=== PATIENT | male | born 1990 | race African-American/Black ===

== ENCOUNTER 2017-06-28 12:42 | Emergency (ER) | payer SELFPAY ==
[~2017-06-28] VITALS: Ht 177.8 cm; Wt 81.6 kg
[2017-06-28] VITALS (31 sets, daily range): BP systolic 112–191; BP diastolic 60–167
--- NOTE | 2017-06-28 13:50 | Emergency Room Report ---
History of Present Illness General Chief Complaint: Altered Level of Consciousness Source: Patient, EMS (KETAN PEREZ D.O.) Present Illness HPI Patient was brought in by police department and paramedics Initial report was that the patient was walking around without clothing Patient initially reported that he was just drunk Patient later on went on to report auditory hallucinations Denies any homicidal or suicidal thoughts However does have some bizarre thought process Patient is otherwise uncooperative with the history and examination (KETAN PEREZ D.O.) Allergies: Coded Allergies: No Known Allergies (Unverified , 06/28/17) Patient History Limited by: medical condition Past Medical History: see triage record Pertinent Family History: unable to obtain Reviewed Nursing Documentation: PMH: Agreed, PSxH: Agreed (KETAN PEREZ D.O.) Nursing Documentation-PMH Past Medical History: No Stated History (KETAN PEREZ D.O.) Review of Systems All Other Systems: limited - Other than the ones mentioned in the history of present illness all others are reviewed however they do stay limited due to the patient's mental status (KETAN PEREZ D.O.) Physical Exam Vital Signs Date Time Temp Pulse Resp B/P (MAP) Pulse Ox O2 Delivery O2 Flow Rate FiO2 06/28/17 12:29 144 20 191/167 98 Room Air 06/28/17 12:43 98.0 Sp02 EP Interpretation: reviewed, normal General Appearance: well appearing, no apparent distress Head: normocephalic, atraumatic Eyes: bilateral eye PERRL, bilateral eye EOMI ENT: hearing grossly normal, normal pharynx Neck: supple, thyroid normal Respiratory: lungs clear Cardiovascular #1: regular rate, rhythm, no edema Gastrointestinal: non tender, soft Musculoskeletal: normal inspection Neurologic: alert, responsive Psychiatric: other - Bizarre thought process, appears agitated denies homicidal thought at this time Skin: normal color (KETAN PEREZ D.O.) Medical Decision Making Diagnostic Impression: Primary Impression: Substance abuse ER Course Patient signed out to me. He presents with altered mental status and agitation from substance abuse. Initially was a Jamar Sargent. He slept through the night. Now is awake and back to baseline. Able to give his name. We'll discharge home. (DUFF,BETTY M.D.) Last Vital Signs Date Time Temp Pulse Resp B/P (MAP) Pulse Ox O2 Delivery O2 Flow Rate FiO2 06/28/17 12:43 98.0 95 20 191/167 98 Room Air (KETAN PEREZ D.O.) Status: improved (BETTY DUFF M.D.) Disposition: HOME, SELF-CARE Condition: Stable KETAN PEREZ D.O. Jun 28, 2017 13:50 BETTY DUFF M.D. Jun 29, 2017 05:30
[2017-06-28] MEDS ORDERED: DiphenhydrAMINE 50mg/ml Inj IM ONE (14:00)
[2017-06-28] MEDS ORDERED: Haloperidol 5mg/ml Inj IM ONE (14:00)
[2017-06-28] MEDS ORDERED: LORazepam Inj 2mg/ml 1ml IM ONE ×2 (14:00→16:30)
[2017-06-28 17:10] LABS: BASOPHILS % (AUTO) 1.3 % (0.0-2.0); EOSINOPHILS % (AUTO) 1.3 % (0.0-3.0); HEMATOCRIT 47.6 % (42.0-52.0); HEMOGLOBIN 15.8 G/DL (14.2-18.0); MEAN CORPUSCULAR VOLUME 95 FL (80-99); MONOCYTES % (AUTO) 10.4 % (1.0-10.0); NEUTROPHILS % (AUTO) 49.9 % (45.0-75.0); PLATELET COUNT 241 K/UL (150-450); RED BLOOD COUNT 5.01 M/UL (4.70-6.10); RED CELL DISTRIBUTION WIDTH 11.5 % (11.6-14.8); WHITE BLOOD COUNT 6.8 K/UL (4.8-10.8)
[2017-06-28 17:32] LABS: ALANINE AMINOTRANSFERASE 22 U/L (12-78); ALBUMIN 4.6 G/DL (3.4-5.0); ALBUMIN/GLOBULIN RATIO 1.5 (1.0-2.7); ALKALINE PHOSPHATASE 102 U/L (46-116); ANION GAP 13 mmol/L (5-15); ASPARTATE AMINO TRANSFERASE 26 U/L (15-37); BLOOD UREA NITROGEN 12 mg/dL (7-18); CALCIUM 10.2 MG/DL (8.5-10.1); CARBON DIOXIDE 28 MMOL/L (21-32); CHLORIDE 102 MMOL/L (98-107); CREATININE 1.3 MG/DL (0.55-1.30); SODIUM 142 MMOL/L (136-145)
[2017-06-29 01:04] VITALS: BP 114/64
[2017-06-29 03:00] VITALS: BP 116/68
[2017-06-29 05:21] VITALS: BP 116/66
[2017-06-29 05:24] VITALS: BP 116/66
== END 2017-06-29 05:30 | disposition home or self-care (01) ==
LOC: EDBD 12:42 → EMR 15:52
DX: F19.10 Other psychoactive substance abuse, uncomplicated (principal)
CPT/HCPCS: 36415; 80053; 80307; 85025; 96372; 99284; G0480; J1200; J1630; 80329

== ENCOUNTER 2017-06-29 13:52 | Emergency (ER) | payer SELFPAY ==
[~2017-06-29] VITALS: Ht 175.3 cm; Wt 81.6 kg
[2017-06-29] VITALS (30 sets, daily range): BP systolic 107–125; BP diastolic 70–85
--- NOTE | 2017-06-29 20:53 | Emergency Room Report ---
History of Present Illness General Chief Complaint: Behavioral Complaint Source: Patient, EMS Present Illness HPI The patient is a 27-year-old male brought in by both paramedics and the [employer] for bizarre behavior. He was seen in this emergency Department yesterday for the same complaint and discharged earlier this morning. The patient does not provide any useful information at this time Allergies: Coded Allergies: No Known Allergies (Unverified , 06/28/17) UNABLE TO ASSESS (Unverified , 06/29/17) PT DIFFICULT TO COMPLY, NOT ANSWERING. Patient History Past Medical History: see triage record Pertinent Family History: none Reviewed Nursing Documentation: PMH: Agreed, PSxH: Agreed Nursing Documentation-PMH Past Medical History: Deferred Review of Systems All Other Systems: limited Physical Exam Vital Signs Date Time Temp Pulse Resp B/P (MAP) Pulse Ox O2 Delivery O2 Flow Rate FiO2 06/29/17 13:56 Room Air 06/29/17 14:00 97.7 89 14 107/74 97 Sp02 EP Interpretation: reviewed, normal General Appearance: alert, GCS 15, non-toxic, mild distress Head: normocephalic, atraumatic Eyes: bilateral eye PERRL, bilateral eye EOMI, bilateral eye abnormal pupil - dilated ENT: hearing grossly normal, normal pharynx, no angioedema, normal voice Neck: full range of motion, supple/symm/no masses Respiratory: chest non-tender, lungs clear, normal breath sounds, speaking full sentences Cardiovascular #1: regular rate, rhythm, no edema Musculoskeletal: back normal, gait/station normal, normal range of motion Neurologic: alert, responsive, motor strength/tone normal, sensory intact Psychiatric: anxious, other - delusional Skin: normal color, no rash, warm/dry, well hydrated Medical Decision Making PA Attestation Dr. Mcadonald is my supervising physician. Patient management was discussed with my supervising physician Diagnostic Impression: Primary Impression: Altered level of consciousness ER Course The patient is a 27-year-old male brought in by both paramedics and the [employer] for bizarre behavior Differential diagnoses considered but not limited to Drug abuse, alcohol intoxication, psychosis, among others PE: Mild distress. Vitals WNL Pt is thrashing about. Head is NC/AT A&Ox2 to name and date. PERRL. Dilated. EOMI RRR Lungs CTA bilat Abd is soft. Non tender Behavioral restraints are placed until a sitter becomes available. Please see labs from yesterday. The patient is given time to rest in the emergency department and will have PET evaluation I have signed the patient out to Dr. Do at this time. Last Vital Signs Date Time Temp Pulse Resp B/P (MAP) Pulse Ox O2 Delivery O2 Flow Rate FiO2 06/29/17 19:45 90 16 99 Room Air 06/29/17 14:00 97.7 107/74 Status: improved Disposition: HOME, SELF-CARE Condition: Improved Referrals: NOT CHOSEN IPA/,REFERRING (PCP) RONAK GERMAIN Jun 29, 2017 20:53
[2017-06-30 00:47] VITALS: BP 127/87
--- NOTE | 2017-06-30 01:47 | Consultation ---
History of Present Illness General Chief Complaint: Behavioral Complaint Present Illness HPI Patient was brought in by police department and paramedics Initial report was that the patient was walking around without clothing Patient initially reported that he was just drunk Patient later on went on to report auditory hallucinations the pt was also delusional the pt was not combative during my eval the pt denied si. Allergies: Coded Allergies: No Known Allergies (Unverified , 06/28/17) UNABLE TO ASSESS (Unverified , 06/29/17) PT DIFFICULT TO COMPLY, NOT ANSWERING. Patient History Healthcare decision maker Resuscitation status Advanced Directive on File Physical Exam Last 24 Hour Vital Signs Date Time Temp Pulse Resp B/P (MAP) Pulse Ox O2 Delivery O2 Flow Rate FiO2 06/30/17 00:47 98.1 92 17 127/87 100 Room Air 06/29/17 21:15 95 14 99 Room Air 06/29/17 21:00 98.1 95 14 125/85 99 Room Air 06/29/17 21:00 95 14 99 Room Air 06/29/17 20:45 95 14 99 Room Air 06/29/17 20:30 90 16 99 Room Air 06/29/17 20:15 90 16 99 Room Air 06/29/17 20:00 90 16 99 Room Air 06/29/17 19:45 90 16 99 Room Air 06/29/17 19:31 90 16 99 Room Air 06/29/17 19:15 90 16 99 Room Air 06/29/17 19:00 85 16 99 Room Air 06/29/17 18:45 85 16 99 Room Air 06/29/17 18:30 81 16 99 Room Air 06/29/17 18:15 84 16 99 Room Air 06/29/17 18:00 78 16 99 Room Air 06/29/17 17:45 78 16 99 Room Air 06/29/17 17:30 78 16 99 Room Air 06/29/17 17:15 79 16 99 Room Air 06/29/17 17:00 80 16 99 Room Air 06/29/17 16:45 80 16 99 Room Air 06/29/17 16:30 79 20 99 Room Air 06/29/17 16:15 79 20 99 Room Air 06/29/17 16:00 87 20 99 Room Air 06/29/17 15:45 87 20 99 Room Air 06/29/17 15:30 89 18 97 Room Air 06/29/17 15:15 84 18 97 Room Air 06/29/17 15:00 89 18 97 Room Air 06/29/17 14:45 86 18 100 Room Air 06/29/17 14:30 89 18 97 Room Air 06/29/17 14:00 97.7 89 14 107/74 97 Room Air 06/29/17 13:56 Room Air Height (Feet): 5 Height (Inches): 9.00 Weight (Pounds): 180 Assessment/Plan Status: stable, progressing Assessment/Plan alcohol abuse the pt should be dced not a 5150 Kingsley Adkins M.D. Jun 30, 2017 01:47
[2017-06-30 03:30] VITALS: BP 130/91
--- NOTE | 2017-06-30 04:23 | Emergency Room Report ---
History of Present Illness General Chief Complaint: Behavioral Complaint Source: Patient, EMS Present Illness Allergies: Coded Allergies: No Known Allergies (Unverified , 06/28/17) UNABLE TO ASSESS (Unverified , 06/29/17) PT DIFFICULT TO COMPLY, NOT ANSWERING. Nursing Documentation-[facility] Past Medical History: Deferred Physical Exam Vital Signs Date Time Temp Pulse Resp B/P (MAP) Pulse Ox O2 Delivery O2 Flow Rate FiO2 06/29/17 13:56 Room Air 06/29/17 14:00 97.7 89 14 107/74 97 Medical Decision Making Diagnostic Impression: Primary Impression: Behavioral change ER Course Received signout from MICHAEL Joseph and Dr Macdonald at 10pm to re-eval this patient Still exhibiting bizarre behavior He is alert and oriented but is non-sensical in answering questions I ask him if he did drugs and he said "I drank." When I ask him what he drank he says "I smoked." He's not sure how he got back to ER He was cleared by Dr Adkins the day before after visit to ER for similar but was brought back by ambulance He is not on a hold [facility] he denies HI, AVH Signed out to Dr Vicente at 630am for pending Psych Cx or PET Last Vital Signs Date Time Temp Pulse Resp B/P (MAP) Pulse Ox O2 Delivery O2 Flow Rate FiO2 06/30/17 00:47 98.1 92 17 127/87 100 Room Air Status: improved Condition: Improved Referrals: NOT CHOSEN IPA/,REFERRING (PCP) KAMRAN FRANKEL M.D. Jun 30, 2017 04:23
--- NOTE | 2017-06-30 04:23 | Emergency Room Report ---
History of Present Illness General Chief Complaint: Behavioral Complaint Source: Patient, EMS Present Illness Allergies: Coded Allergies: No Known Allergies (Unverified , 06/28/17) UNABLE TO ASSESS (Unverified , 06/29/17) PT DIFFICULT TO COMPLY, NOT ANSWERING. Nursing Documentation-[facility] Past Medical History: Deferred Physical Exam Vital Signs Date Time Temp Pulse Resp B/P (MAP) Pulse Ox O2 Delivery O2 Flow Rate FiO2 06/29/17 13:56 Room Air 06/29/17 14:00 97.7 89 14 107/74 97 Medical Decision Making Diagnostic Impression: Primary Impression: Behavioral change ER Course Received signout from MICHAEL Joseph and Dr Macdonald at 10pm to re-eval this patient Still exhibiting bizarre behavior He is alert and oriented but is non-sensical in answering questions I ask him if he did drugs and he said "I drank." When I ask him what he drank he says "I smoked." He's not sure how he got back to ER He was cleared by Dr Adkins the day before after visit to ER for similar but was brought back by ambulance He is not on a hold [facility] he denies HI, AVH Signed out to Dr Vicente at 630am for pending Psych Cx or PET Last Vital Signs Date Time Temp Pulse Resp B/P (MAP) Pulse Ox O2 Delivery O2 Flow Rate FiO2 06/30/17 00:47 98.1 92 17 127/87 100 Room Air Status: improved Condition: Improved Referrals: NOT CHOSEN IPA/,REFERRING (PCP) KAMRAN FRANKEL M.D. Jun 30, 2017 04:23
--- NOTE | 2017-06-30 04:23 | Emergency Room Report ---
History of Present Illness General Chief Complaint: Behavioral Complaint Source: Patient, EMS Present Illness Allergies: Coded Allergies: No Known Allergies (Unverified , 06/28/17) UNABLE TO ASSESS (Unverified , 06/29/17) PT DIFFICULT TO COMPLY, NOT ANSWERING. Nursing Documentation-[facility] Past Medical History: Deferred Physical Exam Vital Signs Date Time Temp Pulse Resp B/P (MAP) Pulse Ox O2 Delivery O2 Flow Rate FiO2 06/29/17 13:56 Room Air 06/29/17 14:00 97.7 89 14 107/74 97 Medical Decision Making Diagnostic Impression: Primary Impression: Behavioral change ER Course Received signout from MICHAEL Joseph and Dr Macdonald at 10pm to re-eval this patient Still exhibiting bizarre behavior He is alert and oriented but is non-sensical in answering questions I ask him if he did drugs and he said "I drank." When I ask him what he drank he says "I smoked." He's not sure how he got back to ER He was cleared by Dr Adkins the day before after visit to ER for similar but was brought back by ambulance He is not on a hold [facility] he denies HI, AVH Signed out to Dr Vicnete at 630am for pending Psych Cx or PET Last Vital Signs Date Time Temp Pulse Resp B/P (MAP) Pulse Ox O2 Delivery O2 Flow Rate FiO2 06/30/17 00:47 98.1 92 17 127/87 100 Room Air Status: improved Condition: Improved Referrals: NOT CHOSEN IPA/,REFERRING (PCP) KAMRAN FRANKEL M.D. Jun 30, 2017 04:23
[2017-06-30 06:15] VITALS: BP 110/80
[2017-06-30] MEDS ORDERED: LORazepam Inj 2mg/ml 1ml IM ONE (10:00)
[2017-06-30] MEDS ORDERED: Haloperidol 5mg/ml Inj IM ONE (10:00)
--- NOTE | 2017-06-30 11:13 | Emergency Room Report ---
History of Present Illness General Chief Complaint: Behavioral Complaint Source: Patient, EMS Present Illness Allergies: Coded Allergies: No Known Allergies (Unverified , 06/28/17) UNABLE TO ASSESS (Unverified , 06/29/17) PT DIFFICULT TO COMPLY, NOT ANSWERING. Nursing Documentation-[facility] Past Medical History: Deferred Physical Exam Vital Signs Date Time Temp Pulse Resp B/P (MAP) Pulse Ox O2 Delivery O2 Flow Rate FiO2 06/29/17 13:56 Room Air 06/29/17 14:00 97.7 89 14 107/74 97 Medical Decision Making Diagnostic Impression: Primary Impression: Behavioral change ER Course Patient signed out to me pending psychiatric evaluation During ED course patient remains bizarre thought and not speaking sensibly Did not believe patient can be safely discharged at this time will require psychiatric evaluation Labs unremarkable. Patient is medically cleared Labs Test 06/30/17 04:10 Urine Opiates Screen Negative (NEGATIVE) Urine Barbiturates Screen Negative (NEGATIVE) Phencyclidine (PCP) Screen Negative (NEGATIVE) Urine Amphetamines Screen Negative (NEGATIVE) Urine Benzodiazepines Screen Positive (NEGATIVE) Urine Cocaine Screen Negative (NEGATIVE) Urine Marijuana (THC) Screen Negative (NEGATIVE) Last Vital Signs Date Time Temp Pulse Resp B/P (MAP) Pulse Ox O2 Delivery O2 Flow Rate FiO2 06/30/17 06:15 98.3 95 14 110/80 100 Room Air Status: unchanged Disposition: XFER TO PSYCH HOSP/UNIT Condition: Serious Referrals: NOT CHOSEN DELILAH/,REFERRING (PCP) COOKIE JDAE M.D. Jun 30, 2017 11:13
--- NOTE | 2017-06-30 11:13 | Emergency Room Report ---
History of Present Illness General Chief Complaint: Behavioral Complaint Source: Patient, EMS Present Illness Allergies: Coded Allergies: No Known Allergies (Unverified , 06/28/17) UNABLE TO ASSESS (Unverified , 06/29/17) PT DIFFICULT TO COMPLY, NOT ANSWERING. Nursing Documentation-[facility] Past Medical History: Deferred Physical Exam Vital Signs Date Time Temp Pulse Resp B/P (MAP) Pulse Ox O2 Delivery O2 Flow Rate FiO2 06/29/17 13:56 Room Air 06/29/17 14:00 97.7 89 14 107/74 97 Medical Decision Making Diagnostic Impression: Primary Impression: Behavioral change ER Course Patient signed out to me pending psychiatric evaluation During ED course patient remains bizarre thought and not speaking sensibly Did not believe patient can be safely discharged at this time will require psychiatric evaluation Labs unremarkable. Patient is medically cleared Labs Test 06/30/17 04:10 Urine Opiates Screen Negative (NEGATIVE) Urine Barbiturates Screen Negative (NEGATIVE) Phencyclidine (PCP) Screen Negative (NEGATIVE) Urine Amphetamines Screen Negative (NEGATIVE) Urine Benzodiazepines Screen Positive (NEGATIVE) Urine Cocaine Screen Negative (NEGATIVE) Urine Marijuana (THC) Screen Negative (NEGATIVE) Last Vital Signs Date Time Temp Pulse Resp B/P (MAP) Pulse Ox O2 Delivery O2 Flow Rate FiO2 06/30/17 06:15 98.3 95 14 110/80 100 Room Air Status: unchanged Disposition: XFER TO PSYCH HOSP/UNIT Condition: Serious Referrals: NOT CHOSEN DELILAH/,REFERRING (PCP) COOKIE JADE M.D. Jun 30, 2017 11:13
[2017-06-30 20:00] VITALS: BP 91/53
[2017-06-30 23:25] VITALS: BP 91/53
[2017-07-01 01:18] LABS: APPEARANCE,URINE CLEAR; BILIRUBIN, URINE NEGATIVE (NEGATIVE); GLUCOSE, URINE (UA) NEGATIVE (NEGATIVE); KETONES,URINE NEGATIVE (NEGATIVE); LEUKOCYTE ESTERASE ,URINE 1+ (NEGATIVE); NITRITE,URINE NEGATIVE (NEGATIVE); PH,URINE 6 (4.5-8.0); PROTEIN,URINE 1+ (NEGATIVE); UROBILINOGEN,URINE NORMAL MG/DL (0.0-1.0)
[2017-07-01 01:22] LABS: COLOR,URINE YELLOW
[2017-07-01 01:57] VITALS: BP 106/72
--- NOTE | 2017-07-01 03:13 | Emergency Room Report ---
History of Present Illness General Chief Complaint: Behavioral Complaint Source: Patient, EMS Present Illness Allergies: Coded Allergies: No Known Allergies (Unverified , 06/28/17) UNABLE TO ASSESS (Unverified , 06/29/17) PT DIFFICULT TO COMPLY, NOT ANSWERING. Nursing Documentation-[facility] Past Medical History: Deferred Physical Exam Vital Signs Date Time Temp Pulse Resp B/P (MAP) Pulse Ox O2 Delivery O2 Flow Rate FiO2 06/29/17 13:56 Room Air 06/29/17 14:00 97.7 89 14 107/74 97 Medical Decision Making Diagnostic Impression: Primary Impression: Behavioral change ER Course Received signout from Dr Richardson at 1030pm for re-evaluation Patient continues to maintain odd behavior in ED Denies SI, HI, AVH Is calm cooperative otherwise Patient was placed on 5150 by PET team after my previous shift with patient He has a bed at [facility] and as of 315am, looking for transport to send patient Last Vital Signs Date Time Temp Pulse Resp B/P (MAP) Pulse Ox O2 Delivery O2 Flow Rate FiO2 07/01/17 01:57 106/72 06/30/17 23:25 98.6 62 20 97 Room Air Status: improved Disposition: XFER TO PSYCH HOSP/UNIT Condition: Stable Referrals: NOT CHOSEN IPA/,REFERRING (PCP) KAMRAN FRANKEL M.D. Jul 01, 2017 03:13
--- NOTE | 2017-07-01 03:13 | Emergency Room Report ---
History of Present Illness General Chief Complaint: Behavioral Complaint Source: Patient, EMS Present Illness Allergies: Coded Allergies: No Known Allergies (Unverified , 06/28/17) UNABLE TO ASSESS (Unverified , 06/29/17) PT DIFFICULT TO COMPLY, NOT ANSWERING. Nursing Documentation-[facility] Past Medical History: Deferred Physical Exam Vital Signs Date Time Temp Pulse Resp B/P (MAP) Pulse Ox O2 Delivery O2 Flow Rate FiO2 06/29/17 13:56 Room Air 06/29/17 14:00 97.7 89 14 107/74 97 Medical Decision Making Diagnostic Impression: Primary Impression: Behavioral change ER Course Received signout from Dr Richardson at 1030pm for re-evaluation Patient continues to maintain odd behavior in ED Denies SI, HI, AVH Is calm cooperative otherwise Patient was placed on 5150 by PET team after my previous shift with patient He has a bed at [facility] and as of 315am, looking for transport to send patient Last Vital Signs Date Time Temp Pulse Resp B/P (MAP) Pulse Ox O2 Delivery O2 Flow Rate FiO2 07/01/17 01:57 106/72 06/30/17 23:25 98.6 62 20 97 Room Air Status: improved Disposition: XFER TO PSYCH HOSP/UNIT Condition: Stable Referrals: NOT CHOSEN IPA/,REFERRING (PCP) KAMRAN FRANKEL M.D. Jul 01, 2017 03:13
[2017-07-01 05:04] VITALS: BP 102/59
[2017-07-01 05:08] VITALS: BP 102/59
== END 2017-07-01 05:10 ==
LOC: EDUNIT# 13:52 → EDBD 13:52 → EMR 14:13
DX: F91.9 Conduct disorder, unspecified (principal); F10.10 Alcohol abuse, uncomplicated; R44.0 Auditory hallucinations
CPT/HCPCS: 80307; 81003; 96372; 99285